=== PATIENT | male | born 1965 | race Caucasian/White ===

== ENCOUNTER 2018-09-02 00:40 | Emergency (ER) | payer SELFPAY ==
[2018-09-02 00:44] VITALS: BMI 10.8
[2018-09-02 01:02] VITALS: TEMP 97.9; O2SAT 99
[2018-09-02] MEDS ORDERED: Naproxen 550 mg Tab PO STA (01:37)
[2018-09-02] MEDS ORDERED: Naproxen 550 mg Tab PO ONE (01:48)
--- NOTE | 2018-09-02 02:11 | C.PDOC ---
History Of Present Illness 53 year old male presents to ED with complaint of right middle finger pain for the past 3 weeks. He states that it feels like his finger "gets stuck" and is unable to extend it. This morning he asked his to pull on his finger to help straighten it and she forcefully ' yanked it '. Not long after, patient states that he developed swelling to the area and increased pain. He denies trauma, redness, or puncture wound. Time Seen by Provider: 09/02/18 01:03 Chief Complaint (Nursing): Finger,Hand,&Wrist History Per: Patient History/Exam Limitations: no limitations Onset/Duration Of Symptoms: Other (3 weeks) Current Symptoms Are (Timing): Still Present Quality: "Pain" Past Medical History Reviewed: Historical Data, Nursing Documentation, Vital Signs Vital Signs: Last Vital Signs Temp 97.9 F 09/02/18 00:57 Pulse 79 09/02/18 00:57 Resp 20 09/02/18 00:57 BP 163/94 H 09/02/18 00:57 Pulse Ox 99 09/02/18 00:57 Primary Care Provider: Blank Ceja - Medical History PMH: Diabetes, HTN, Kidney Stones Surgical History: Cholecystectomy - [facility] Procedures LAPAROSCOPIC CHOLECYSTECTOMY (06/16/14) Family History: States: Unknown Family Hx - Social History Hx Tobacco Use: No Hx Alcohol Use: No Hx Substance Use: No - Immunization History Hx Tetanus Toxoid Vaccination: No Hx Influenza Vaccination: No Hx Pneumococcal Vaccination: No Review Of Systems Constitutional: Negative for: Fever, Chills, Weakness Musculoskeletal: Positive for: Hand Pain (right middle finger pain and swelling). Negative for: Other (trauma, erythema, or puncture wound) Neurological: Negative for: Weakness, Numbness Physical Exam - Physical Exam Appears: Non-toxic, No Acute Distress Skin: Normal Color, Warm, Dry Head: Atraumatic, Normacephalic Extremity: Tenderness (on palpation of right middle finger - dorsally), Capillary Refill (<2 seconds), No Deformity, Swelling (from the PIP joint of the right middle finger to the MCP joint, no erythema, no warmth, no fluctuance, no palpable nodule), Other (ROM of right middle finger limited due to pain ) Extremity: Bilateral: Atraumatic, Normal Color And Temperature Pulses: Left Radial: Normal, Right Radial: Normal Neurological/Psych: Oriented x3, Normal Speech, Normal Cognition, Normal Motor, Normal Sensation ED Course And Treatment O2 Sat by Pulse Oximetry: 99 (in RA) Pulse Ox Interpretation: Normal - Other Rad Right 3rd digit x-ray X-Ray: Interpreted by Me (soft tissue swelling) Progress Note: X-ray of the right third digit ordered for patient. Patient given Naproxen. Patient advised to follow up with hand surgery. Finger splint applied by CP and checked by this PA. Patient advised to apply ice and use NSAIDs. Disposition Counseled Patient/Family Regarding: Diagnosis, Need For Followup, Rx Given - Disposition Referrals: Gonsalo Romero MD [Staff Provider] - Disposition: HOME/ ROUTINE Disposition Time: 02:07 Condition: STABLE Additional Instructions: Take naproxen for pain Follow up with Hand surgeon- Call Monday for appointment Keep splint for support Return to ER if worse Prescriptions: Naproxen [Naprosyn] 1 tab PO BID PRN #25 tab PRN Reason: Pain Instructions: Trigger Finger, Finger Sprain (DC) Forms: [place] (Belgian) - Clinical Impression Clinical Impression: Finger pain, right, Sprain of finger of right hand, Trigger finger of right hand - PA / LINE TENDER / Resident Statement MD/DO has reviewed & agrees with the documentation as recorded. (Valeria Yancey) - Scribe Statement The provider has reviewed the documentation as recorded by the Scribe (Valeria Yancey) All medical record entries made by the Scribe were at my direction and personally dictated by me. I have reviewed the chart and agree that the record accurately reflects my personal performance of the history, physical exam, medical decision making, and the department course for this patient. I have also personally directed, reviewed, and agree with the discharge instructions and disposition.
[2018-09-02 02:21] VITALS: BP 149/87; PULSE 81; RESP 16
--- NOTE | 2018-09-02 17:14 | RAD ---
Date of service: 09/02/2018 PROCEDURE: Right middle finger radiographs. HISTORY: pain and swelling COMPARISON: None. TECHNIQUE: AP radiograph of the right hand, as well as spot oblique and lateral images of index finger were obtained. 3 views obtained. FINDINGS: RIGHT MIDDLE FINGER: Right middle finger normal, without fracture of focal lesion. Remainder of the right hand (as seen on the AP view) grossly unremarkable. JOINTS: Normal. SOFT TISSUES: Mild soft tissue swelling. OTHER FINDINGS: None. IMPRESSION: No evidence of acute fracture or dislocation. Mild soft tissue swelling
== END 2018-09-02 02:25 | disposition home or self-care (01) ==
LOC: C.ER 00:40
DX: S63.612A Unspecified sprain of right middle finger, initial encounter (principal); M65.331 Trigger finger, right middle finger; M79.644 Pain in right finger(s); X50.9XXA Other and unspecified overexertion or strenuous movements or postures, initial encounter; E11.9 Type 2 diabetes mellitus without complications; I10 Essential (primary) hypertension